=== PATIENT | female | born 2000 | race Caucasian/White ===

== ENCOUNTER → 2023-11-19 16:00 | Outpatient (BNVA) | payer BC, SELFPAY | PROVIDERS: PCP Family Medicine; Visit Provider Nurse Practitioner Women's Health | DX: Z12.4 Encounter for screening for malignant neoplasm of cervix (principal); Z11.3 Encounter for screening for infections with a predominantly sexual mode of transmission; N39.0 Urinary tract infection, site not specified | CPT/HCPCS: 87086; 87491; 87591; 87624 ==